=== PATIENT | female | born 1990 | race African-American/Black ===

== ENCOUNTER 2017-04-02 00:30 | Emergency (ER) | payer OTHER ==
--- NOTE | 2017-04-02 01:04 | PDOC ---
History of Present Illness - General Chief Complaint: Vaginal Sxs Stated Complaint: PERSONAL Time Seen by Provider: 04/02/17 00:53 History Source: Patient - History of Present Illness Initial Comments: 04/02/17 00:59 26 year old female with white vaginal discharge and rectal itching that is not improving. patient seen by financial analyst accountant treated with metrogel/ diflucan x 3 with no relief in symptoms. recent negative gc/ Chlamydia as per patient. LMP: 03/04/2017 denies fever, abdominal pain, NVD, denies new partner/ STI exposure 04/02/17 01:23 Past History - Past Medical History Allergies/Adverse Reactions: Allergies Allergy/AdvReac Type Severity Reaction Status Date / Time No Known Allergies Allergy Verified 04/10/13 21:51 Home Medications: Ambulatory Orders Amox-Tr/K Cl [Augmentin 875-125mg Tablet -] 1 tab PO BID #20 tablet 04/08/13 No Home Medications 0 dose .ROUTE UTDICT 04/08/13 Cyclobenzaprine HCl [Flexeril] 5 mg PO HS PRN #5 tablet 04/10/13 Naproxen [Naprosyn -] 500 mg PO BID #14 tablet 04/10/13 Hydrocortisone [Preparation H] 1 applic TP BID PRN #1 tube 04/02/17 Asthma: Yes - Psycho/Social/Smoking Cessation Hx Anxiety: No Suicidal Ideation: No Smoking Status: No Smoking History: Never smoked Number of Cigarettes Smoked Daily: 0 Review of Systems - Review of Systems Able to Perform ROS?: Yes Is the patient limited Italian proficient: No Constitutional: No: Symptoms Reported, See HPI, Chills, Diaphoresis, Fever, Loss of Appetite, Malaise, Night Sweats, Weakness, Weight Stable, Unintentional Wgt. Loss, Unexplained wgt Loss, Other *Physical Exam - Physical Exam General Appearance: Yes: Appropriately Dressed Female Pelvic Exam: positive: normal external exam Rectal Exam: positive: normal exam. negative: hemorrhoids Extremity: positive: Normal Capillary Refill, Normal Inspection, Normal Range of Motion Integumentary: positive: Normal Color, Dry, Warm Neurologic: positive: Fully Oriented, Alert, Normal Mood/Affect *DC/Admit/Observation/Transfer Diagnosis at time of Disposition: Itchy skin of anus and genitals - Discharge Dispostion Disposition: HOME - Prescriptions Prescriptions: Hydrocortisone [Preparation H] 1 applic TP BID PRN #1 tube PRN Reason: itch - Patient Instructions Printed Discharge Instructions: DI for Anal Itching (Pruritus Ani) Additional Instructions: apply preparation H as prescribed. follow up with your doctor / sleeve bottom feller as soon as possible.
[2017-04-02 01:19] VITALS: BP 119/73; PULSE 74; TEMP 98.2; BMI 27.4
[2017-04-02 02:41] LABS: URINE APPEARANCE SLCLOUDY; URINE BILIRUBIN NEGATIVE (NEGATIVE); URINE BLOOD NEGATIVE (NEGATIVE); URINE COLOR YELLOW; URINE GLUCOSE (UA) NEGATIVE (NEGATIVE); URINE KETONE NEGATIVE (NEGATIVE); URINE LEUK ESTERASE NEGATIVE (NEGATIVE); URINE NITRITE NEGATIVE (NEGATIVE); URINE PROTEIN NEGATIVE (NEGATIVE); URINE UROBILINOGEN NEGATIVE mg/dL (0.2-1.0)
== END 2017-04-02 03:10 | disposition home or self-care (01) ==
LOC: JER 00:30
DX: L29.0 Pruritus ani (principal)
CPT/HCPCS: 81003; 87081; 87086; 99281-25

== ENCOUNTER 2018-01-28 04:58 | Day surgery (SDC) | payer OTHER ==
[2018-01-26 12:58] VITALS: BMI 28.4
--- NOTE | 2018-01-28 07:04 | HP ---
[facility] - Chief Complaint Chief Complaint: This patient is admitted to have a uterine polyp removed. History of Present Illness: This patient has been having irregular periods and 2 recent sonograms reveal a uterine polyp. History Source: Patient Limitations to Obtaining History: No Limitations - Past Medical History Allergies/Adverse Reactions: Allergies Allergy/AdvReac Type Severity Reaction Status Date / Time No Known Allergies Allergy Verified 01/28/18 06:38 SHOE SPRAYER: No: Alzheimer's, CVA, Dementia, Migraine, Multiple Sclerosis, Peripheral Neuropathy, Parkinson's, Seizure, Syncope, TIA, Vertigo, Other Cardiovascular: No: AFIB, Aneurysm, Aortic Insufficiency, Aortic Stenosis, CAD, CHF, Deep Vein Thrombosis, HTN, Hyperlipdemia, [place], Mitral Insufficiency, Mitral Stenosis, Murmur, Pulmonary Hypertension, Other Pulmonary: No: Asthma, Bronchitis, Cancer, COPD, O2 Dependent, Pneumonia, Previously Intubated, Pulmonary Embolus, Pulmonary Fibrosis, Sleep Apnea, Other Gastrointestinal: No: Ascites, Cancer, Constipation, Crohn's Disease, Diverticulitis, Diverticulosis, Esophageal Varices, Gastritis, GERD, GI Bleed, Hemorrhoids, Hiatal Hernia, Inflamatory Bowel Disease, Irritable Bowel Disease, Pancreatitis, Peptic Ulcer Disease, Ulcerative Colitis, Other Renal/: No: Renal Failure, Renal Inusuff, BPH, Cancer, Hematuria, Hemodialysis , Neurogenic Bladder, Renal Calculi, UTI, Other Reproductive: No: Ectopic , Endometriosis, Fibroids, PID, Polycystic Ovary Syndrome, Postmenopausal, Other ...: No ...: 0 Heme/Onc: No: Anemia, B12 Deficiency, Bleeding Disorder, Cancer, Current Chemotherapy, Current Radiation Therapy, Hemochromatosis, Hypercoaguable State, Myeloproliferative Synd, Sickle Cell Disease, Sickle Cell Trait, Thrombocytopenia, Other Infectious Disease: No: AIDS, C-Diff, Herpes Zoster, HIV, MRSA, STD's, Tuberculosis, VREF, Other Musculoskeletal: No: Bursitis, Chronic low back pain, Hemiparesis, Hemiplegia, Osteoarthritis, Paraplegia, Other Rheumatology: No: Fibromyalgia, Gout, Lupus, Rheumatoid Arthritis, Sarcoidosis, Vasculitis, Other ENT: No: Allergic Rhinitis, Sinusitis, Other Endocrine: No: Ajck's Disease, Alannah's Disease, Diabetes Insipidus, Diabetes Mellitus, Hyperparathyroidism, Hyperthyroidism, Hypothyroidism, Osteopenia, SIADH, Other Dermatology: No: Basal Cell, Cellulitis, Eczema, Melanoma, Psoriasis, Squamous Cell, Other - Current Medications Current Medications: Home Medications Medication Instructions Recorded No Home Medications 0 dose .ROUTE UTDICT 04/08/13 Satellite Physical Exam - Physical Examination Vital Signs: Vital Signs Period Temp Pulse Resp BP Sys/Paul Pulse Ox Last 24 Hr 98.1 F 67 16 113/77 100 General Appearance: Well Nourished, Well Developed, Alert & Oriented x3 ENT: Clear, No Discharge, No masses Lung: Clear to auscultation Heart: Regular rate & rhythm, Normal S1, Normal S2 Breasts: Soft, Non-Tender, No masses bilaterally Abdomen: Soft, No tenderness, No CVA Extremities: No edema, No tenderness/swelling Pelvic Exam: Within normal limits External Genitalia, Within normal limits Vagina, Within normal limits Cervix, Within normal limits Uterus, Within normal limits [place] Neurological: Intact, Alert, Oriented Satellite Impression/Plan - Impression/Plan Impression: Uterine polyp Operative Procedure: Hysteroscopy and polypectomy. Date to be Performed: 01/28/18
[2018-01-28] MEDS ORDERED: ePHEDrine SULFATE 50 MG/1 ML AMPULE ONE (07:07)
[2018-01-28] MEDS ORDERED: LIDOCAINE HCL/PF 2% SDV 5ML VIAL ONE (07:07)
[2018-01-28] MEDS ORDERED: KETOROLAC TROMETHAMINE 30 MG/1 ML VIAL ONE (07:07)
[2018-01-28] MEDS ORDERED: PHENYLEPHRINE HCL 10 MG/1 ML SINGLE DOSE VIAL ONE (07:07)
[2018-01-28] MEDS ORDERED: DEXAMETHASONE SOD PHOSPHATE 4 MG/1 ML VIAL ONE (07:07)
[2018-01-28] MEDS ORDERED: ONDANSETRON 4 MG/2 ML VIAL ONE (07:07)
[2018-01-28] MEDS ORDERED: MIDAZOLAM HCL 2 MG/2 ML SINGLE DOSE VIAL ONE ×2 (07:08)
[2018-01-28] MEDS ORDERED: PROPOFOL 20 ML ONE ×5 (07:08→08:09)
[2018-01-28] MEDS ORDERED: SUCCINYLCHOLINE CHLORIDE 200 MG/10 ML VIAL ONE (07:08)
[2018-01-28] MEDS ORDERED: DESFLURANE GAS 240 ML BOTTLE IH ONE (07:25)
[2018-01-28] MEDS ORDERED: SEVOFLURANE 250 ML BTL ONE (07:25)
[2018-01-28] MEDS ORDERED: oxyCODONE HCL 5 MG TABLET PO PRN (08:51)
[2018-01-28] MEDS ORDERED: PROMETHAZINE HCL 25 MG/1 ML VIAL IVPUSH PRN (08:51)
[2018-01-28] MEDS ORDERED: ONDANSETRON 4 MG/2 ML VIAL IVPUSH PRN (08:51)
[2018-01-28] MEDS ORDERED: LACTATED RINGERS SOLUTION 1,000 ML IV SCH (09:00)
--- NOTE | 2018-01-28 09:30 | OP ---
DATE OF OPERATION: 01/28/2018 SURGEON: Leobardo Medina MD PREOPERATIVE DIAGNOSIS: Uterine polyp. POSTOPERATIVE DIAGNOSIS: Uterine polyp. OPERATIVE PROCEDURE: Hysteroscopy, polypectomy using Symphion and dilatation and curettage. ESTIMATED BLOOD LOSS: Approximately 5 mL. DESCRIPTION OF PROCEDURE: This patient was brought to the operating room, placed in the supine position, given anesthesia by the ell tutor, placed in the lithotomy position, prepped and draped in the usual manner for hysteroscopy. A speculum was placed into the vagina after the vagina was prepped and draped with Betadine. The cervix was grasped with a tenaculum. Uterus was sounded to 6.5 cm. Hysteroscopy was then done showing multiple polyps in the fundus of the uterus. The Symphion instrument was used to clear out all of the polyps. The hemostasis was good. Polypectomy was good. The patient tolerated the procedure well. The dilatation and curettage was done at the end of the procedure just to clear out any loose tissue. The tissue from the dilatation and curettage was also sent to Pathology as well as the polypectomy tissue from the Symphion machine. The patient tolerated the procedure well and was transferred to the recovery room in good condition with good hemostasis. LEOBARDO MEDINA M.D. [id number]
[2018-01-28] MEDS ORDERED: oxyCODONE HCL 5 MG TABLET PO ONE (10:10)
[2018-01-28 12:04] VITALS: TEMP 98
[2018-01-28 13:20] VITALS: BP 116/63; PULSE 78
--- NOTE | 2018-01-31 10:32 | PATH ---
Surgical Pathology Report Patient Name: ANGELA WOODWARD [facility]. Rec. #: [id number] /Age/Gender: 1990 (Age: 27) / F Account: [id number] Location: [facility] SURGICAL Taken: 01/28/2018 Received: 01/28/2018 Reported: 01/31/2018 Physicians: Mickey Medina M.D. Specimen(s) Received A: ENDOMETRIAL BIOPSY POLYP B: ENDOMETRIAL CURETTINGS Clinical History Endometrial polyp Final Diagnosis A. ENDOMETRIAL POLYP, BIOPSY: FRAGMENTS OF ENDOMETRIAL POLYP. SEPARATE FRAGMENTS OF SECRETORY TYPE ENDOMETRIUM AND FEW FRAGMENTS OF MYOMETRIUM. B. ENDOMETRIAL CURETTINGS: FRAGMENTS OF SECRETORY TYPE ENDOMETRIUM AND RARE FRAGMENTS OF MYOMETRIAL. SEPARATE ENDOCERVICAL TISSUE WITH NO DIAGNOSTIC ABNORMALITIES. Electronically Signed Cheyenne Pereira M.D. Gross Description A. Received in formalin labeled "endometrial polyps," is a 4.3 x 3.0 x 0.4 cm aggregate of guerrero-pink soft tissue fragments. The formalin is filtered and the specimen is entirely submitted in 2 cassettes. B. Received in formalin labeled "endometrial curettings," is a 2.8 x 2.1 x 0.3 cm aggregate of guerrero-pink, irregular to polypoid portions of soft tissue. The specimen is entirely submitted in one cassette. 01/28/201801/28/2018
== END 2018-01-28 11:50 | disposition home or self-care (01) ==
LOC: JASU-SURG 04:58
PROVIDERS: ATTEND Obstetrics & Gynecology
PROC: 0UJD8ZZ Inspection of Uterus and Cervix, Via Natural or Artificial Opening Endoscopic (ICD-10-PCS; 2018-01-28)
PROC: 0UB97ZX Excision of Uterus, Via Natural or Artificial Opening, Diagnostic (ICD-10-PCS; principal; 2018-01-28 07:30)
PROC: 0UDB7ZX Extraction of Endometrium, Via Natural or Artificial Opening, Diagnostic (ICD-10-PCS; 2018-01-28 07:30)
DX: N84.0 Polyp of corpus uteri (principal)
CPT/HCPCS: 86850; 86900; 86901; 88305-TC; 94760

== ENCOUNTER 2018-04-04 20:00 | Emergency (ER) | payer OTHER ==
[2018-04-04 20:06] VITALS: BP 127/73; PULSE 88; TEMP 97.9; BMI 28.2
--- NOTE | 2018-04-04 20:08 | PDOC ---
Rapid Medical Evaluation Chief Complaint: Pain Time Seen by Provider: 04/04/18 20:03 Medical Evaluation: Allergies Allergy/AdvReac Type Severity Reaction Status Date / Time No Known Allergies Allergy Verified 01/28/18 06:38 04/04/18 20:03 This patient had a brief in-person evaluation by me The patient has a chief complaint of: burning sensation in lower abdomen since yesterday. Also reports pain in lower back. The pertinent physical findings are: NAD appears uncomfortable no cva tenderness +mild tenderness in lower abdomen The following orders have been placed: urine , urinalysis, labs This patient will proceed to the ED for further evaluation.
[2018-04-04 20:25] LABS: HCG,QUALITATIVE URINE Negative
--- NOTE | 2018-04-04 21:14 | PDOC ---
History of Present Illness - General Chief Complaint: Pain Stated Complaint: ABDOMINAL PAIN Time Seen by Provider: 04/04/18 20:03 - History of Present Illness Initial Comments: 27 y/o female presenting to [facility] ER via private auto complaining of lower abdominal pain for the past two days. Pain acutely worsened this evening while she was driving home from work. States it began to move towards the left flank and felt like something was coming out of me down there. Symptoms have since decreased in intensity without intervention. Pt denies h/o similar. Denies dysuria, frequency, hematuria, discharge, SOB, chest pain, or syncope. Pt was evaluated two days ago by telemedicine doctor, who diagnosed the pt with a UTI and prescribed Macrobid. Pt has completed day 2 of therapy. Past History - Past Medical History Allergies/Adverse Reactions: Allergies Allergy/AdvReac Type Severity Reaction Status Date / Time No Known Allergies Allergy Verified 04/04/18 20:06 Home Medications: Ambulatory Orders No Home Medications 0 dose .ROUTE UTDICT 04/08/13 Naproxen Sodium [All Day Pain Relief] 220 mg PO BID PRN 7 Days #28 tablet Anemia: No Asthma: Yes (as a child) Cancer: No Cardiac Disorders: No CVA: No COPD: No CHF: No Dementia: No Diabetes: No GI Disorders: No Disorders: No HTN: No Hypercholesterolemia: No Liver Disease: No Seizures: No Thyroid Disease: No - Suicide/Smoking/Psychosocial Hx Smoking Status: No Smoking History: Never smoked Have you smoked in the past 12 months: No Number of Cigarettes Smoked Daily: 0 Information on smoking cessation initiated: No Hx Alcohol Use: No Drug/Substance Use Hx: No Substance Use Type: None Hx Substance Use Treatment: No Review of Systems - Review of Systems Able to Perform ROS?: Yes Is the patient limited Tongan proficient: No Constitutional: No: Chills, Diaphoresis, Fever Respiratory: No: Shortness of Breath Cardiac (ROS): No: Chest Pain ABD/GI: No: Constipated, Diarrhea, Nausea, Vomiting : Yes: See HPI, Flank Pain. No: Burning, Dysuria, Discharge, Frequency, Hematuria Musculoskeletal: Yes: Back Pain Integumentary: No: Rash Neurological: No: Dizziness Hematologic/Lymphatic: No: Easy Bleeding, Easy Bruising *Physical Exam - Vital Signs Last Vital Signs Temp Pulse Resp BP Pulse Ox 97.9 F 88 18 127/73 100 04/04/18 20:03 04/04/18 20:03 04/04/18 20:03 04/04/18 20:03 04/04/18 20:03 - Physical Exam Comments: Constitutional: Well-developed, well-nourished female in no acute distress. Found semi-fowlers in hospital bed. Alert and oriented x4. Answered all questions appropriately and completely. Speech was non-labored, non-pressured. HEENT: Normocephalic. No obvious external signs of trauma. Hearing grossly normal. No nasal discharge. Neck is supple, trachea is midline. Cardiovascular: Regular rate and regular rhythm. No murmur, rubs, clicks, or gallops. Peripheral pulses: Radial pulses full. Respiratory: Breathing unlabored. Equal chest rise and fall. Clear to auscultation bilaterally. No stridor, no wheezing, no rhonchi. Gastrointestinal: abdomen is subjectively tender in RLQ and LLQ without rebound or guarding; otherwise soft and non-distended. No hepatosplenemegaly. No pulsatile masses. No overlying skin lesions or obvious signs of trauma. Neuro: Alert and oriented. Moving all four extremities spontaneously. Gait normal. Skin: Warm, dry, and intact. No bruising, rashes, or other lesions. No palpable nodules. : No R or L CVA tenderness. Psych: Affect: appropriate. Mood: normal. FEMALE PELVIC: External genitalia unremarkable. Speculum exam with normal appearing whitish vaginal discharge. Vaginal wall mucosa is unremarkable. Cervix visualized and is unremarkable (closed in appearance without any protruding material). Bimanual exam revealed mild cervical motion tenderness and R and L adnexal tenderness. No masses appreciated. RN chaperoned exam. ED Treatment Course - ADDITIONAL ORDERS Additional order review: Laboratory Results 04/04/18 20:14 Urine HCG, Qual Negative Medical Decision Making - Medical Decision Making *Reviewed vital signs, nursing notes, and prior visit documentation (if available). 27 y/o female complaining of bilateral pelvic pain with acutely worsening symptoms. On day 2 of Macrobid for presumed UTI. Afebrile. Vitals unremarkable. Physical revealed mild cervical motion tenderness and both R and L adnexal tenderness. D/D includes mittelschmerz, , ectopic , ovarian torsion, PID, cystitis, salpingitis, uterine fibroids, ovarian cyst. Will obtain UA , GC urine amplification, and transvaginal ultrasound. Pt declined pain medication. UA unremarkable for pyuria, leukocyte esterase, or nitrites. Low suspicion for UTI. Culture pending. Results may be negative given two days of antimicrobial therapy. UPreg negative. Low suspicion for ectopic or IUP. U/S revealed possible hemorrhagic cyst on left ovary with small to moderate amount of free fluid in right adnexa. No evidence of torsion. Repeat U/S recommended for 6-8 weeks. Suspect rupture of cyst was likely cause of acutely worsening pain. Vitals are stable so pt not likely a surgical candidate. Discussed imaging and laboratory results with pt. Answered all questions. Provided return precautions. Pt expressed verbal understanding and agreement with plan to discharge home with outpatient follow up. *DC/Admit/Observation/Transfer Diagnosis at time of Disposition: Ovarian cyst rupture - Discharge Dispostion Disposition: HOME Condition at time of disposition: Good Decision to Admit order: No - Prescriptions Prescriptions: Naproxen Sodium [All Day Pain Relief] 220 mg PO BID PRN 7 Days #28 tablet PRN Reason: Pain - Referrals Referrals: Tracie Dozier MD [Primary Care Provider] - Mickey Medina MD [Staff Physician] - - Patient Instructions Printed Discharge Instructions: DI for Ovarian Cyst Additional Instructions: Your ultrasound showed an ovarian cyst with evidence of rupture. This is likely the source of your pain. I have attached a copy of the ultrasound report to this packet. I have sent a prescription for Naproxen to [facility]. Take as directed on the package insert. Follow up with your OBGYN doctor within the next week. You will need to call to make an appointment. Take this packet with you so the doctor can see the ultrasound report. You can also see your primary care physician. Go to the nearest emergency department if your condition worsens or you feel like you need additional emergency evaluation. Print Language: CAMBODIAN - Post Discharge Activity
[2018-04-04 22:50] LABS: URINE APPEARANCE CLEAR; URINE BILIRUBIN NEGATIVE (<2.0 mg/dL); URINE COLOR STRAW; URINE GLUCOSE (UA) NEGATIVE (NEGATIVE); URINE KETONE NEGATIVE (NEGATIVE); URINE LEUK ESTERASE NEGATIVE (NEGATIVE); URINE NITRITE NEGATIVE (NEGATIVE); URINE PROTEIN NEGATIVE (NEGATIVE); URINE UROBILINOGEN NEGATIVE mg/dL (0.2-1.0)
--- NOTE | 2018-04-04 23:29 | PDOC ---
Attending Attestation - HPI HPI: 04/04/18 23:37 The patient is a 27 year old female, with no significant past medical history, who presents to the emergency department with, lower abdominal pain and back pain. She describes her pain as a burning sensation onsetting yesterday. - Physicial Exam PE: 04/04/18 23:37 GENERAL: Well-appearing, well-nourished. No apparent distress. HEENT: Normocephalic, atraumatic. PERRL, EOM intact. CARDIOVASCULAR: Normal S1, S2. Regular rate and rhythm. PULMONARY: Clear to auscultation bilaterally. ABDOMEN: Soft, non-distended, non-tender. PELVIC: Refer to resident exam. EXTREMITIES: Normal ROM in all four extremities. No gross deformities. SKIN: Warm, dry. No rash NEUROLOGICAL: No focal neurological deficits. <Jordi Montalvo - Last Filed: 04/04/18 23:36> - Resident Resident Name: Mickey Ramirez - ED Attending Attestation I have performed the following: I have examined & evaluated the patient, The case was reviewed & discussed with the resident, I agree w/resident's findings & plan, Exceptions are as noted - HPI HPI: 04/04/18 23:29 27 yo female with sudden lower pelvic pain - Physicial Exam PE: 04/04/18 23:29 wnwd 27 yo female with moderate pain head ncat neck supple lungs cta b/l cvs [id number] and no rebound, no guarding skin warm and dry neuro axoxx3,ambulatory - Medical Decision Making 04/04/18 23:31 pelvic US reveals hemorrhagic ovarian cyst on the left plan f/u with student services representative <Caitlin Ovalle - Last Filed: 04/06/18 02:40> Attestations - Attestations 04/04/18 23:37 Documentation prepared by Jordi Montalvo, acting as medical sociologist for Caitlin Ovalle MD. <Jordi Montalvo - Last Filed: 04/04/18 23:36>
== END 2018-04-05 00:11 | disposition home or self-care (01) ==
LOC: JER 20:00
DX: N83.209 Unspecified ovarian cyst, unspecified side (principal); J45.909 Unspecified asthma, uncomplicated
CPT/HCPCS: 36415; 76830-TC; 81003; 84703; 87086; 87491; 87591; 99283-25